=== PATIENT | male | born 2000 | race Caucasian/White ===

== ENCOUNTER → 2023-02-16 13:42 | Outpatient (CLI) | payer OTHER, SELFPAY ==
--- NOTE | 2023-02-16 | DI.ECHO.S_ITS ---
[facility] +---------+ : : [address] : [place] [address] : : : : [id number] : : : : Phone: [phone]---------+ Echocardiogram Report + + :Name: JOSESITO THIBODEAUX Study Date: 02/16/2023 Height: 77 in : :[facility] ReadingLocation: Weight: 215 lb : : Gender: Male BSA: 2.3 m2 : :: 2000 Age: 22 yrs BP: 122/83 mmHg: :Reason For Study: PALPITATIONS HR: 80 : :Ordering Physician: NOLBERTO, : :MEET Performed By: MONIQUE HERRING : :Referring: MEET ARVIZU : + + Interpretation Summary Normal echo study. Procedure: A two-dimensional transthoracic echocardiogram with color flow and Doppler was performed. The study quality was technically adequate. There is no prior echocardiogram noted for this patient. The patient was in normal sinus rhythm during the exam. Left Ventricle: The left ventricle appears normal in size, wall thickness, and systolic function without any focal wall motion abnormalities. The ejection fraction is estimated to be 60-65%. Right Ventricle: The right ventricle grossly appears normal in size with probable normal systolic function. Atria: Both atria are normal in size. There is no Doppler evidence for an interatrial shunt. Mitral Valve: The mitral valve is normal in structure and function. There is no mitral regurgitation noted. Aortic Valve: The aortic valve is trileaflet. The aortic valve opens well. There is no aortic valve stenosis. No aortic regurgitation is present. Tricuspid Valve: The tricuspid valve is normal in structure and function. There is trace tricuspid regurgitation. The right ventricular systolic pressure is estimated to be at least 24 mmHg based on an estimated right atrial pressure of 3 mm Hg. Pulmonic Valve: The pulmonic valve leaflets are thin and pliable; valve motion is normal. There is no pulmonic valvular regurgitation. Great Vessels: The aortic root is normal size. The ascending aorta could not be visualized. The IVC is of normal diameter and collapses greater than 50% with a sniff. This suggests a low right atrial pressure of 3 mm Hg. Pericardium/ Pleura There is no pericardial effusion. There is no pleural effusion. MMode/2D Measurements & Calculations LVIDd: 5.0 cm LVOT diam: 2.0 cm LVIDs: 3.4 cm Ao root diam: 3.8 cm FS: 32.0 % IVSd: 1.0 cm LVPWd: 0.90 cm LV ordonez. diameter/BSA (cm/m^2): 2.2 LV sys. diameter/BSA (cm/m^2): 1.5 LA A2 area: 17.9 cm2 RA long axis: 3.5 cm LA A4 area: 13.3 cm2 LA length (vol): 4.2 cm LA vol: 48.3 ml LA vol index: 21.0 ml/m2 LVLs ap4: 6.9 cm LVLd ap2: 8.9 cm LVLs ap2: 7.0 cm TAPSE_phl: 1.9 cm Doppler Measurements & Calculations Ao V2 max: 127.0 cm/sec LVOT Max Yobani: 128.0 cm/sec Ao V2 mean: 99.1 cm/sec LV V1 max P.6 mmHg Ao max P.5 mmHg LV V1 VTI: 24.1 cm Ao mean P.0 mmHg DANDRE(I,D): 3.2 cm2 Ao V2 VTI: 23.7 cm DANDRE(V,D): 3.2 cm2 sev ratio: 1.0 DANDRE indexed to BSA (cm^2/m^2): 1.4 MV E max yobani: 107.0 cm/sec TR max yobani: 229.0 cm/sec MV A max yobani: 81.8 cm/sec TR max P.0 mmHg MV E/A: 1.3 PA V2 max: 108.0 cm/sec Med Peak E' Yobani: 13.8 cm/sec PA V2 mean: 80.1 cm/sec E/E' med: 7.8 PA mean P.0 mmHg Lat Peak E' Yobani: 14.8 cm/sec PA pr(Accel): 12.4 mmHg E/E' lat: 7.2 E/e' average: 7.5 MV dec time: 0.15 sec SV(LVOT): 75.7 ml AV VR_phl: 1.0 DANDRE(VTI)/BSA_phl: 1.4 MV P1/2t-pr_phl: 43.0 msec Electronically signed by: Sukhjinder Schafer on Reading Physician:02/16/2023 03:23 PM
== END ==
PROVIDERS: Referring Provider Chiropractor; Visit Provider Chiropractor
DX: R00.2 Palpitations (principal)
CPT/HCPCS: 93005; 93010; 93306